=== PATIENT | female | born 1990 | race Two or more races ===

== ENCOUNTER 2023-03-27 10:04 | Emergency (ER) | payer OTHER ==
[~2023-03-27] VITALS: Ht 162.6 cm; Wt 58.1 kg
== END 2023-03-27 11:51 | disposition home or self-care (01) ==
LOC: ER 10:04
DX: Z34.90 Encounter for supervision of normal pregnancy, unspecified, unspecified trimester (principal); G44.89 Other headache syndrome; Z88.6 Allergy status to analgesic agent

== ENCOUNTER 2023-11-17 09:07 | Emergency (ER) | payer OTHER ==
[~2023-11-17] VITALS: Ht 162.6 cm; Wt 56.7 kg
[2023-11-17] MEDS ORDERED: FAMOTIDINE/PF 20 MG in 0.9 % SODIUM CHLORIDE 8 ML IV PUSH STA (09:55)
[2023-11-17] MEDS ORDERED: ONDANSETRON HCL 2 MG/ML VIAL IV ONE (10:00)
[2023-11-17 10:34] LABS: URINE APPEARANCE Clear; URINE BILIRRUBIN Negative (NEGATIVE); URINE BLOOD Negative; URINE COLOR Yellow; URINE GLUCOSE Negative (NEGATIVE); URINE LEUKOCYTE Negative; URINE NITRATE Negative; URINE PROTEIN Negative (NEGATIVE); URINE UROBILINOGEN 0.2 E.U./dl
[2023-11-17 10:35] LABS: HEMATOCRIT 39.7 % (36.0-45.00); HEMOGLOBIN 13.6 g/dL (12.0-15.00); MEAN CELL VOLUME 88.1 fL (80.00-100.00); MEAN CORPUSCULAR HEMOGLOBIN 30.2 pg (27.00-32.0); MEAN CORPUSCULAR HGB CONC 34.3 g/dl (32.0-36.0); PLATELET COUNT 240 K/uL (150-450); RED BLOOD COUNT 4.51 M/uL (4.00-6.00)
[2023-11-17 10:39] LABS: URINE BACTERIA 263.2 uL (0.0-1933); URINE WBC 2.7 uL (0.0-23.2)
[2023-11-17 10:44] LABS: URINE RBC 1.1 uL (0.0-20.8)
[2023-11-17] MEDS ORDERED: PRENA1 TRUE CO1 EACH PO (13:22)
[2023-11-17] MEDS ORDERED: ONDANSETRON ODT8 MG PO (13:22)
== END 2023-11-17 13:36 | disposition home or self-care (01) ==
LOC: ER 09:07
PROVIDERS: General Practice
DX: O20.9 Hemorrhage in early pregnancy, unspecified (principal); Z3A.01 Less than 8 weeks gestation of pregnancy; Z88.6 Allergy status to analgesic agent